=== PATIENT | female | born 1945 | race Caucasian/White ===

== ENCOUNTER 2017-06-21 16:46 | Inpatient (IN) ==
--- NOTE | 2017-06-21 17:03 | Emergency Department Note ---
Arrival - Arrival Chief Complaint: Fall Stated Complaint: FALL ED Nursing Triage Note: fell at home tripped over the cat and landed on her R side has pain to R hip area and unable to bear wgt R leg elevated denies any LOC or other injuries Mode of Arrival: Stretcher Time Seen by Provider: 06/21/17 17:01 - History of Present Illness HPI Narrative: The patient fell at home injuring her right hip. She states she did not feel a pop or hear a pop. She fell first and now is hurting behind her right hip and the pain worsens when she moves her right leg. It is more comfortable when she keeps her leg slightly flexed at the knee. She denies a loss of consciousness, neck pain, nausea, or vomiting. Home Medications: Home Medications Medication Instructions Recorded Confirmed Type Aspirin 81 mg PO QAM 06/21/17 06/21/17 History Insulin NPH Hum/Reg Insulin Hm 10 unit SUBCUT BID 06/21/17 06/21/17 History [NovoLIN 70/30] Exam Physical Examination: General: Patient is well-developed and well-nourished with no acute distress noted. HEENT: The extraocular muscles are intact. Oropharynx is moist. There is no erythema or exudate. The tympanic membranes are shiny bilaterally. Neck: There is no adenopathy. Full range of motion is noted without pain. The trachea is midline. No JVD is present. Lungs: There is normal excursion of the chest with the lungs sounding clear bilaterally. No subcostal retractions are present. There is no point tenderness present. Heart: The heart has a regular rate and rhythm with no gallops or murmurs. Abdomen: The abdomen is nontender and nondistended with no rebound, guarding, or masses. Bowel sounds are normal. Back: The back demonstrates a normal appearance with no evidence of trauma. Genitourinary: Not examined. Extremities: The extremities demonstrate a shortened right leg with equivocal external rotation of the right knee. Pulses are intact. Neuro: Cranial nerves II through XII are checked and intact. There is no focal motor or sensory deficit seen in the extremities. Skin: Skin is warm and dry with no evidence of rash. Vital Signs: Vital Signs Temperature 98.5 F 06/21/17 16:54 Pulse Rate 82 06/21/17 16:54 Respiratory Rate 17 10/14/17 16:54 Blood Pressure 136/89 10/14/17 16:54 O2 Sat by Pulse Oximetry 100 06/21/17 16:54 Course - Reevaluation(s) Reevaluation #1: The patient will be admitted to the hospitalist service with Dr. Akil boucher. He requests the patient be kept n.p.o. after midnight. Time: 18:02 Results - Diagnostic Findings Procedure: Chest x-ray: image reviewed by me (No acute process), X-ray: image reviewed by me (Nondisplaced intertrochanteric fracture) Disposition Clinical Impression: Nondisplaced intertrochanteric right hip Case discussed with: patient, patient's family Disposition: Still a Patient Condition: Stable Time of Disposition: 18:04
--- NOTE | 2017-06-21 18:04 | XRay Report ---
History: Right hip pain after fall Date: 06/21/2017 Study: Right hip 2 views Comparison exam: No previous similar There is a nondisplaced acute intertrochanteric fracture of the hip with near-anatomic alignment. Impression: Acute intertrochanteric fracture right hip PROCEDURE INTERPRETED AT [facility] DEPARTMENT OF RADIOLOGY Final Report Signed by: Dr. Angelica Peterson
--- NOTE | 2017-06-21 18:12 | XRay Report ---
History: Right hip fracture Date: 06/21/2017 Study: Chest x-ray AP portable Comparison exam: No previous The cardiomediastinal silhouette and pulmonary vasculature are unremarkable. The lungs and pleural spaces are clear. The osseous structures are unremarkable. Impression: No acute cardiopulmonary process PROCEDURE INTERPRETED AT [facility] DEPARTMENT OF RADIOLOGY Final Report Signed by: Dr. Angelica Peterson
[2017-06-21 18:41] LABS: Basophils % 0.4 % (0.0-0.8); Eosinophils % 0.2 % (0.00-10.9); Hematocrit 32.9 VOL% (35.7-47.0); Hemoglobin 11.5 GM/DL (12.0-16.0); Immature Granulocytes % 0.4 %; Immature Granulocytes Absolute 0.05 #; Lymphocytes # 1.1 10*3/uL (1.4-4.0); Lymphocytes % 9.6 % (21.3-54.2); Mean Corpuscular Hemoglobin 29 PG (27-34); Mean Corpuscular Volume 81.6 FL (87-102); Mean Platelet Volume 11.3 FL (9.6-12.0); Monocytes % 8.5 % (1.7-12.7); Neutrophils # 9.1 10*3/uL (1.4-7.4); Neutrophils % 80.9 % (38.7-73.9); Platelet Count 253 T/CUMM (130-400); Red Blood Count 4.03 MC/CUMM (3.8-5.5); Red Cell Distribution Width 12.3 % (9.3-17.3); White Blood Count 11.2 T/CUMM (4-12)
--- NOTE | 2017-06-21 18:43 | Orthopedic Consult Note ---
History of Present Illness Chief complaint: Right hip pain status post fall History of present illness: Ms. Sorto is a 71 year old female Ms. Sorto is a 71-year-old white female who fell today sore tripping over a cat at the [place] her right side she had recent right hip pain was unable to ambulate. She normally ambulates without assistive device and is in fairly good health for her stated age of 71 her past medical history she denies heart attack she denies drugs she is insulin-dependent diabetic meds she is on insulin 7030 twice a day and it may be a allergies light past surgeries denies medical surgery Social history does not smoke or drink and she is retired Allergies latex review of systems otherwise negative except with positive stated Physical exam Pleasant white female alert and oriented cooperative her family is present She is alert or cooperative HEENT extremities intact oropharynx is benign neck is nontender throughout the lumbar spine are nontender pelvis is nontender Range of motion right hip is not attended attempted she is tender in the right hip or thigh and calf are soft she has a 2+ dorsalis pedis pulse and she is neurovascularly intact X-rays nondisplaced right intertrochanteric fracture assessment Assessment right intertrochanteric hip fracture Plan open reduction internal fixation right hip with trochanteric nail risks benefits discussed with the patient and her family at length medicine is seen patient admitting patient n.p.o. after midnight for surgery open reduction internal fixation right hip Home Medications Medication Instructions Recorded Confirmed Type Aspirin 81 mg PO QAM 06/21/17 06/21/17 History Insulin NPH Hum/Reg Insulin Hm 10 unit SUBCUT BID 06/21/17 06/21/17 History [NovoLIN 70/30] Allergies Allergy/AdvReac Type Severity Reaction Status Date / Time Unable to Obtain Allergy Unverified 06/21/17 18:37 Exam - Constitutional Vitals: Period Temp Pulse Resp BP Sys/Solomon Pulse Ox Last 24 Hr 98.5 F 82 17 136/89 100
[2017-06-21 18:44] LABS: Apearance,Urine CLEAR (Clear); Bilirubin,Urine Negative (Negative); Blood, Urine Negative (Negative); Glucose,Urine (UA) >=500 mg/dL (Negative); Ketones,Urine Negative (Negative); Nitrite,Urine Negative (Negative); Protein,Urine Negative; Urine Color Straw (Yellow); Urine Specific Gravity 1.021 (1.001-1.035); Urine Urobilinogen < 2.0 EU/DL (0.2-1.0)
--- NOTE | 2017-06-21 18:45 | Hospitalist History & Physical ---
Assessment and Plan (1) Fracture of right hip Status: Acute Assessment and plan: Xray showed an acute intertrochanteric fracture right hip. Orthopedic has seen and wants to take patient to the OR in am. Current Visit: Yes (2) IDDM (insulin dependent diabetes mellitus) Status: Acute Assessment and plan: we will place on a sliding scale for now, hold home meds, since patient will be in and out of meal. Will get HbA1c level. Accucheks UA Lipids CMP EKG IVF Current Visit: Yes History of Present Illness Chief complaint: right hip pain History of present illness: Ms. Sorto is a 71 year old female with a history of insulin dependent diabetes who tripped over her cat at her house and landed on her right side sustaining a hip pain, and couldn't ambulate. EMS brought her to the ER. Upon arrival, Xray showed an acute intertrochanteric fracture right hip, CXR showed no acute cardiopulmonary process. Orthopedic has been consulted and we have been asked to admit while they take the patient to the OR in am. Patient denies hitting her head on the floor. She nears syncope, chest pain or chest tightness.No SOB, fever, nausea, vomiting. She was functioning independently prior to this fall. Home Medications Medication Instructions Recorded Confirmed Type Aspirin 81 mg PO QAM 06/21/17 06/21/17 History Insulin NPH Hum/Reg Insulin Hm 10 unit SUBCUT BID 06/21/17 06/21/17 History [NovoLIN 70/30] Allergies Allergy/AdvReac Type Severity Reaction Status Date / Time Unable to Obtain Allergy Unverified 06/21/17 18:37 Medical,Surgical,& Family Hx - Medical History Endocrine: History of: Diabetes Mellitus (IDDM) 12 point system: reviewed and no additional remarkable complaints except as stated Exam - Constitutional Vitals: Period Temp Pulse Resp BP Sys/Solomon Pulse Ox Last 24 Hr 98.5 F 82 17 136/89 100 General appearance: no acute distress - Head Head exam: Present: normal inspection - Respiratory Respiratory exam: Present: clear to auscultation bilaterally - Cardiovascular Cardiovascular exam: Present: regular rate and rhythm - GI/Abdominal GI/Abdominal exam: Present: normal bowel sounds - Extremities Exam Extremities exam: Present: other (right hip fracture) - Neurological Exam Neurological exam: Present: alert, oriented X3 Results - Labs CBC & BMP: 06/21/17 18:30 Lab Results: I have reviewed the past 24 hour labs
[2017-06-21 18:50] LABS: PT Patient Result 10.5 SECS
[2017-06-21 19:11] LABS: Calcium 8.8 MG/DL (8.5-10.1); Magnesium 1.9 MG/DL (1.8-2.4); Osmolality,Calculated 288.8 MOS/KG (273-304); Potassium 3.9 MMOL/L (3.5-5.1)
[2017-06-21] MEDS ORDERED: INSULIN LISPRO 100 UNIT/ML SUBCUT STA (19:22)
[2017-06-21] MEDS ORDERED: INSULIN LISPRO 100 UNIT/ML SUBCUT ONE (19:27)
[2017-06-21] MEDS ORDERED: MORPHINE 2 MG/1 ML SYRINGE IV PRN (19:45)
[2017-06-21] MEDS ORDERED: GLUCAGON 1 MG VIAL IM PRN (19:45)
[2017-06-21] MEDS ORDERED: DOCUSATE SODIUM 100 MG CAPSULE PO PRN (19:45)
[2017-06-21] MEDS ORDERED: ACETAMINOPHEN 325 MG TABLET PO PRN (19:45)
[2017-06-21] MEDS ORDERED: DEXTROSE 50% 25 GM/50 ML VIAL IV PRN (19:45)
[2017-06-21] MEDS ORDERED: ZALEPLON 5 MG CAPSULE PO PRN (19:45)
[2017-06-21] MEDS ORDERED: ONDANSETRON 4 MG/2 ML VIAL IV PRN (19:45)
[2017-06-21] MEDS: SODIUM CHLORIDE 0.9% 1,000 ML IV SCH (20:14)
[2017-06-21 21:10] LABS: Albumin 3.1 G/DL (3.4-5.0); Bilirubin,Total 0.7 MG/DL (0.2-1.0); Calcium 8.6 MG/DL (8.5-10.1); Osmolality,Calculated 289.4 MOS/KG (273-304); Potassium 3.7 MMOL/L (3.5-5.1); Total Protein 6.3 G/DL (6.4-8.3)
[2017-06-21 21:17] LABS: Magnesium 2.1 MG/DL (1.8-2.4); Risk Ratio 2.82; Thyroid Stimulating Hormone 3.27 uIU/ml (0.358-3.74)
--- NOTE | 2017-06-21 21:54 | Order Completion Report ---
See report scanned to EMR
[2017-06-22 00:22] LABS: Lymphocytes 11 % (20-55); Platelet Estimate Normal; Segmented Neutrophils 82 % (50-85); Total Cells Counted 100
[2017-06-22] MEDS: INSULIN LISPRO 100 UNIT/ML SUBCUT SCH ×4 (00:59→18:25)
[2017-06-22 06:17] LABS: Basophils % 0.3 % (0.0-0.8); Eosinophils # 0.1 10*3/uL (0.0-0.87); Eosinophils % 0.6 % (0.00-10.9); Hematocrit 27.7 VOL% (35.7-47.0); Hemoglobin 9.6 GM/DL (12.0-16.0); Immature Granulocytes % 0.4 %; Immature Granulocytes Absolute 0.03 #; Lymphocytes % 25.6 % (21.3-54.2); Mean Corpuscular HGB Conc 34.7 GM/DL (32-36); Mean Corpuscular Hemoglobin 28 PG (27-34); Mean Platelet Volume 11.5 FL (9.6-12.0); Monocytes # 0.9 10*3/uL (0.11-0.8); Monocytes % 11.7 % (1.7-12.7); Neutrophils # 4.9 10*3/uL (1.4-7.4); Neutrophils % 61.4 % (38.7-73.9); Platelet Count 234 T/CUMM (130-400); Red Blood Count 3.38 MC/CUMM (3.8-5.5); Red Cell Distribution Width 12.6 % (9.3-17.3)
[2017-06-22] MEDS ORDERED: ceFAZolin 1,000 MG VIAL ONE (07:55)
[2017-06-22] MEDS ORDERED: cefTRIAXone 1,000 MG in SODIUM CHLORIDE 0.9% 100 ML IV ONE (08:34)
[2017-06-22] MEDS ORDERED: ceFAZolin 1,000 MG VIAL IM ONE (08:38)
[2017-06-22] MEDS: PANTOPRAZOLE 40 MG TABLET PO SCH (09:14)
--- NOTE | 2017-06-22 09:18 | XRay Report ---
History: Right hip fracture. Patient undergoing ORIF Date: 06/22/2017 Study: AP and lateral views right femur performed in surgery Comparison exam: Right hip x-ray 06/21/2017 Intraoperative films document placement of intramedullary lila across the femoral shaft with sliding compression screw across the femoral neck. There is relatively good alignment and positioning of the right hip fracture following ORIF. 85.3 seconds fluoroscopy time was utilized. 8 spot films were captured and archived. Impression: Films document ORIF PROCEDURE INTERPRETED AT [facility] DEPARTMENT OF RADIOLOGY Final Report Signed by: Dr. Angelica Peterson
--- NOTE | 2017-06-22 09:18 | Operative Note ---
Procedure: Mild preop diagnosis right intertrochanteric fracture Postop diagnosis same Procedure right hip ORIF with trochanteric nail indication new para via radiolucen the patient the patient was done and latex free environment hospital [facility] [id number] [facility] numbers [id number] thank you T drill was then used to place a single locking screw distally new. The wound was irrigated out then closed with 0 2-0 Vicryl and jake on skin sterile dressing was applied tar procedure well without complication Dr. Barnard dictating on Veronica Sorto date of is 1945 Implants used Synthes trochanteric nail 10 x 3 8030 angle lag screw was a 90 Surgeon Akil anesthesia general ii farmworker none estimated blood loss 25 cc complications none indicated Indication Ms. Sorto is a 8-year-old who fell yesterday over a cat sustaining a right intertrochanteric fracture nondisplaced minimally displaced or open reduction internal fixation was recommended risks benefits bleeding infection nerve damage stiffness blood clot further surgery required several discussed she was cleared by medicine for surgery. Human Resource Consultant none Estimated blood loss 25 cc Complications none Surgeon Akil procedure Patient brought to the operating room a general anesthetic cements per anesthesia patient was then moved out of the fracture table [place] table Well-padded perineal post was placed right leg was placed for traction left leg was placed in a well leg kinney The leg was verified position on C-arm AP and lateral views right leg was then prepped and draped after prepping and draping and lateral incision was made proximal to the greater troches as dissection was carried out the iliotibial band appear guidepin was then placed down to the greater cardiotropic and running with intra-reamer of the entry reamer The flexible guidewire was then placed down reamed up to an 11 and half and then placed a nail 10 x 380 mm with 100 third-degree I using the guidewire guidepin was placed up into the head verified position AP and lateral views lag screw was then placed up in the femoral head initially 100 mm this was removed it was too long and a 9 mm lag screw was placed the set screw was then tightened down and backed off one half turn Surgeon / Physician: Yony Barnard Results - Labs CBC & BMP: 06/22/17 05:51 06/21/17 20:04 Discharge Plan - Discharge Medications No Action Insulin NPH Hum/Reg Insulin Hm [NovoLIN 70/30] 10 unit SUBCUT BID Aspirin 81 mg PO QAM - Follow Up or Referral - Forms/Instructions
--- NOTE | 2017-06-22 09:30 | Anesthesia Post-Op ---
Anesthesia Post OP - Post Ansesthetic Evaluation Patient seen in post op: Yes Resp: within normal limits CV: within normal limits Mental: within normal limits (pt remains sedate) Temp: within normal limits [id number]: within normal limits Nausea and Vomiting: within normal limits Pain: within normal limits (pt remain s sedate)
[2017-06-22] MEDS ORDERED: PROPOFOL 200 MG/20 ML VIAL IV ONE (09:31)
[2017-06-22] MEDS ORDERED: fentaNYL 100 MCG/2 ML VIAL ONE (09:32)
[2017-06-22] MEDS ORDERED: LACTATED RINGERS 1,000 ML IV ONE (09:32)
[2017-06-22] MEDS ORDERED: ACETAMINOPHEN 1,000 MG/100 ML VIAL IV ONE (09:32)
[2017-06-22] MEDS ORDERED: ROCURONIUM 100 MG/10 ML VIAL IV ONE ×2 (09:32→15:15)
[2017-06-22] MEDS ORDERED: MIDAZOLAM 2 MG/2 ML VIAL ONE (09:32)
[2017-06-22] MEDS ORDERED: SEVOFLURANE 1 UNIT/15 MINUTE INH ONE (09:32)
[2017-06-22] MEDS ORDERED: SODIUM CHLORIDE 0.9% 100 ML IV ONE (09:32)
[2017-06-22] MEDS: SODIUM CHLORIDE 0.9% 1,000 ML IV SCH (10:42)
--- NOTE | 2017-06-22 11:29 | Orthopedic Progress Note ---
Orthopedics - Subjective Interval history: Postop today Vital signs are stable She is arousable she is alert Thigh and calf are soft 2+ dorsalis pedis pulse Neuro intact Dressing dry Assessment patient is doing well we will to be toe-touch weightbearing starting her on Lovenox 40 mg subcu daily in a.m. I have recommended to the patient and and to her family swing bed referral thank you Postop right hip ORIF with trochanteric nail long Exam - Constitutional Vitals: Period Temp Pulse Resp BP Sys/Solomon Pulse Ox Last 24 Hr 97.3 F-98.6 F 55-82 14-20 94-155/40-91 94-100 Results - Labs CBC & BMP: 06/22/17 05:51 06/21/17 20:04 Quality Measures - VTE Contraindication to Pharmacological VTE Prophylaxis: High Risk of Bleeding
[2017-06-22] MEDS: ceFAZolin 1,000 MG VIAL IM SCH ×2 (12:30→21:33)
--- NOTE | 2017-06-22 14:29 | Hospitalist Progress Note ---
Assessment and Plan (1) Fracture of right hip Status: Acute Assessment and plan: Xray showed an acute intertrochanteric fracture right hip.She had surgery this am. She is going fine. Plan Continue with Orthopedics' recommendations Current Visit: Yes (2) IDDM (insulin dependent diabetes mellitus) Status: Acute Assessment and plan: poorly controlled. [id number] Plan Start Lantus 15units bid DM teaching Continue SSC and accuchecks Current Visit: Yes Hospitalist: Subjective Interval history: 71yr old with IDDM who fell and sustained a right hip fracture. She had surgery this am and currently doing fine. She had no new complaints. Exam - Constitutional Vitals: Period Temp Pulse Resp BP Sys/Solomon Pulse Ox Last 24 Hr 97.3 F-98.6 F 55-82 14-20 94-155/40-91 94-100 General appearance: no acute distress - Head Head exam: Present: normal inspection - Neck Neck exam: Present: normal inspection - Respiratory Respiratory exam: Present: clear to auscultation bilaterally - Cardiovascular Cardiovascular exam: Present: regular rate and rhythm - GI/Abdominal GI/Abdominal exam: Present: normal bowel sounds - Extremities Exam Extremities exam: Present: normal inspection Results - Labs CBC & BMP: 06/22/17 05:51 06/21/17 20:04 Lab Results: I have reviewed the past 24 hour labs Quality Measures - VTE Contraindication to Pharmacological VTE Prophylaxis: High Risk of Bleeding
[2017-06-22] MEDS ORDERED: PROPOFOL 500 MG/50 ML BOTTLE IV ONE (15:15)
[2017-06-22] MEDS ORDERED: ONDANSETRON 4 MG/2 ML VIAL ONE (15:15)
[2017-06-22] MEDS ORDERED: LIDOCAINE 100 MG/5 ML SYRINGE ONE (15:15)
[2017-06-22] MEDS ORDERED: PHENYLEPHRINE 1 MG/10 ML SYRINGE IV ONE (15:15)
[2017-06-22] MEDS: INSULIN GLARGINE 100 UNIT/ML SUBCUT SCH ×2 (16:24→21:32)
[2017-06-22] MEDS: ENOXAPARIN 40 MG/0.4 ML SYRINGE SUBCUT SCH (21:31)
[2017-06-23] MEDS: INSULIN LISPRO 100 UNIT/ML SUBCUT SCH ×4 (00:11→18:18)
[2017-06-23] MEDS: SODIUM CHLORIDE 0.9% 1,000 ML IV SCH ×2 (00:11→13:52)
[2017-06-23 05:17] LABS: Basophils % 0.2 % (0.0-0.8); Hematocrit 23.7 VOL% (35.7-47.0); Hemoglobin 7.9 GM/DL (12.0-16.0); Immature Granulocytes % 0.6 %; Immature Granulocytes Absolute 0.05 #; Lymphocytes # 1.4 10*3/uL (1.4-4.0); Lymphocytes % 17.2 % (21.3-54.2); Mean Corpuscular HGB Conc 33.3 GM/DL (32-36); Mean Corpuscular Hemoglobin 29 PG (27-34); Mean Corpuscular Volume 85.6 FL (87-102); Mean Platelet Volume 11.2 FL (9.6-12.0); Monocytes # 0.9 10*3/uL (0.11-0.8); Monocytes % 10.8 % (1.7-12.7); Neutrophils # 5.8 10*3/uL (1.4-7.4); Neutrophils % 71.2 % (38.7-73.9); Platelet Count 178 T/CUMM (130-400); Red Blood Count 2.77 MC/CUMM (3.8-5.5); Red Cell Distribution Width 12.9 % (9.3-17.3); White Blood Count 8.1 T/CUMM (4-12)
[2017-06-23] MEDS: INSULIN GLARGINE 100 UNIT/ML SUBCUT SCH ×2 (09:33→20:06)
[2017-06-23] MEDS: PANTOPRAZOLE 40 MG TABLET PO SCH (09:34)
--- NOTE | 2017-06-23 11:48 | Hospitalist Progress Note ---
Assessment and Plan (1) Fracture of right hip Status: Acute Assessment and plan: The patient continues on standard postoperative pathway for treatment of hip fracture. Current Visit: Yes (2) Diabetes type 2, controlled Status: Acute Current Visit: Yes Hospitalist: Subjective Interval history: The patient was admitted to hospital and required open reduction internal fixation of the right femur. The patient is recovering nicely and has less pain today. The patient still has discomfort when moving especially bearing weight. The patient has no complaint of angina or palpitation today. Exam - Constitutional Vitals: Period Temp Pulse Resp BP Sys/Solomon Pulse Ox Last 24 Hr 98.0 F-99.3 F 68-81 16-19 104-128/50-78 93-100 Exam: Constitutional System: Mild distress. No tremulousness. Head: Normocephalic, atraumatic. Ears, Nose and Throat System: No evidence of Otitis or Mastoiditis. No epistaxis or discharge Eyes System: Pupils equal, round, and reactive. Extraocular muscles intact. Neck: Supple, without adenopathy, No jugular venous distention. No thyromegaly , neck mass, or prior surgery apparent. Respiratory System: Chest clear to auscultation. Cardiovascular System: Heart with regular rate and rhythm. No murmur. GI System: Abdomen soft, nontender. Normo active bowel sounds present. Musculoskeletal System: Right leg with surgical bandage in place. Neurological System: No discernable sensory deficit. No aphasia Psychiatric System: Conversation is rational Capillary Refill: less than 3 sec Results - Labs CBC & BMP: 06/23/17 04:56 06/21/17 20:04 Lab Results: I have reviewed the past 24 hour labs Quality Measures - VTE Contraindication to Pharmacological VTE Prophylaxis: High Risk of Bleeding
--- NOTE | 2017-06-23 15:25 | Orthopedic Progress Note ---
Orthopedics - Subjective Interval history: Test postop day 1 right intertrochanteric fracture ORIF with troponin nail Patient is without complaints physical therapy is getting ready see her currently Vital signs to Alert and oriented 4 Neurovascularly intact to the right lower extremity Thigh and calf are soft Dressing dry and clean Plan physical therapy toe-touch weightbearing to right lower extremity Discussed and recommended swing bed to patient and family and they are not going to that probable DC in a.m. Exam - Constitutional Vitals: Period Temp Pulse Resp BP Sys/Solomon Pulse Ox Last 24 Hr 98.0 F-99.3 F 69-81 16-18 111-123/50-60 93-98 Results - Labs CBC & BMP: 06/23/17 04:56 06/21/17 20:04 Quality Measures - VTE Contraindication to Pharmacological VTE Prophylaxis: High Risk of Bleeding
[2017-06-23] MEDS: ENOXAPARIN 40 MG/0.4 ML SYRINGE SUBCUT SCH (20:07)
[2017-06-24] MEDS: INSULIN LISPRO 100 UNIT/ML SUBCUT SCH ×4 (00:37→18:57)
[2017-06-24] MEDS: SODIUM CHLORIDE 0.9% 1,000 ML IV SCH ×2 (03:41→03:46)
[2017-06-24 06:42] LABS: Basophils % 0.3 % (0.0-0.8); Eosinophils # 0.1 10*3/uL (0.0-0.87); Eosinophils % 0.7 % (0.00-10.9); Hematocrit 21.6 VOL% (35.7-47.0); Hemoglobin 7.2 GM/DL (12.0-16.0); Immature Granulocytes % 0.7 %; Immature Granulocytes Absolute 0.05 #; Lymphocytes # 1.4 10*3/uL (1.4-4.0); Lymphocytes % 18.7 % (21.3-54.2); Mean Corpuscular HGB Conc 33.3 GM/DL (32-36); Mean Corpuscular Hemoglobin 29 PG (27-34); Mean Corpuscular Volume 85.7 FL (87-102); Mean Platelet Volume 11.6 FL (9.6-12.0); Monocytes % 12.8 % (1.7-12.7); Neutrophils # 5.1 10*3/uL (1.4-7.4); Neutrophils % 66.8 % (38.7-73.9); Platelet Count 169 T/CUMM (130-400); Red Blood Count 2.52 MC/CUMM (3.8-5.5); Red Cell Distribution Width 12.8 % (9.3-17.3); White Blood Count 7.6 T/CUMM (4-12)
[2017-06-24 07:12] LABS: Alanine Aminotransferase < 9 U/L (13-56); Albumin 1.8 G/DL (3.4-5.0); Alkaline Phosphatase 66 U/L (45-117); Aspartate Amino Transferase 16 U/L (0-37); Bilirubin,Total < 0.39 MG/DL (0.2-1.0); Blood Urea Nitrogen 12 MG/DL (7-18); Calcium 7.3 MG/DL (8.5-10.1); Glucose 96 MG/DL (74-106); Magnesium 1.9 MG/DL (1.8-2.4); Osmolality,Calculated 278.4 MOS/KG (273-304); Phosphorous 1.9 MG/DL (2.5-4.9); Sodium 140 MMOL/L (136-145); Total Protein 4.6 G/DL (6.4-8.3)
--- NOTE | 2017-06-24 07:45 | Orthopedic Progress Note ---
Assessment and Plan (1) Fracture of right hip Status: Acute Current Visit: Yes Orthopedics - Subjective Interval history: Postop day 2 Vital signs are stable Alert and oriented 4 Incision clean and dry Thigh and calf are soft neurovascularly intact We will transfuse 1 unit packed red blood cells secondary to drop in hematocrit patient's age and medical comorbidities Exam - Constitutional Vitals: Period Temp Pulse Resp BP Sys/Solomon Pulse Ox Last 24 Hr 98.0 F-100.4 F 51-82 16-20 111-155/53-71 95-99 Results - Labs CBC & BMP: 06/24/17 05:47 06/24/17 05:47 Quality Measures - VTE Contraindication to Pharmacological VTE Prophylaxis: High Risk of Bleeding
[2017-06-24] MEDS ORDERED: SODIUM CHLORIDE 0.9% 250 ML IV PRN (07:48)
[2017-06-24] MEDS: PANTOPRAZOLE 40 MG TABLET PO SCH (10:04)
[2017-06-24] MEDS: INSULIN GLARGINE 100 UNIT/ML SUBCUT SCH ×2 (10:05→21:15)
[2017-06-24] MEDS ORDERED: SODIUM PHOSPHATE INJ 30 MMOL in SODIUM CHLORIDE 0.9% 250 ML IV ONE (11:09)
--- NOTE | 2017-06-24 17:18 | Hospitalist Progress Note ---
Assessment and Plan (1) Diabetes type 2, controlled Status: Acute Assessment and plan: Blood sugars are stable; continue Accu-Cheks with sliding scale coverage as previously ordered. Current Visit: Yes (2) Fracture of right hip Status: Acute Assessment and plan: Postoperative day #2 status post ORIF of the right hip. PT and OT in progress per MD order. Current Visit: Yes Qualifiers: Encounter type: subsequent encounter Hospitalist: Subjective Interval history: Patient seen and examined; chart reviewed. No significant overnight events reported per staff. Postoperative day #2 status post ORIF of right hip. Hemoglobin and hematocrit noted at 7.2 /21.6. We will transfuse 2 units packed red blood cells. Exam - Constitutional Vitals: Period Temp Pulse Resp BP Sys/Solomon Pulse Ox Last 24 Hr 98.7 F-100.4 F 51-76 16-18 111-151/53-71 93-98 General appearance: normal weight, no acute distress - Head Head exam: Present: normal inspection, normocephalic, atraumatic - Eye Eye exam: Present: EOMI. Absent: conjunctival injection Pupils: Present: HANANE, normal accommodation - ENT ENT exam: Present: normal exam, normal external ear exam, normal oropharynx - Neck Neck exam: Present: normal inspection. Absent: lymphadenopathy, meningismus, tenderness, thyromegaly - Respiratory Respiratory exam: Present: clear to auscultation bilaterally. Absent: rales, rhonchi, stridor, wheezes - Cardiovascular Cardiovascular exam: Present: regular rate and rhythm. Absent: carotid bruit, diastolic murmur, gallop, JVD, rubs, systolic murmur - GI/Abdominal GI/Abdominal exam: Present: normal bowel sounds, soft - Extremities Exam Extremities exam: Present: normal inspection, normal capillary refill - Back Exam Back exam: Present: normal inspection - Neurological Exam Neurological exam: Present: alert, oriented X3, CN II-XII intact - Psychiatric Psychiatric exam: Present: normal affect, normal mood - Skin Skin exam: Present: normal color, warm, dry Results - Labs CBC & BMP: 06/24/17 05:47 06/24/17 05:47 Lab Results: I have reviewed the past 24 hour labs Quality Measures - VTE Contraindication to Pharmacological VTE Prophylaxis: High Risk of Bleeding
[2017-06-24] MEDS: ENOXAPARIN 40 MG/0.4 ML SYRINGE SUBCUT SCH (21:16)
[2017-06-25] MEDS: SODIUM CHLORIDE 0.9% 1,000 ML IV SCH ×3 (02:53→05:01)
[2017-06-25] MEDS: INSULIN LISPRO 100 UNIT/ML SUBCUT SCH ×3 (03:00→11:05)
[2017-06-25 07:10] LABS: Basophils % 0.4 % (0.0-0.8); Eosinophils # 0.1 10*3/uL (0.0-0.87); Eosinophils % 0.8 % (0.00-10.9); Hematocrit 26.6 VOL% (35.7-47.0); Immature Granulocytes % 0.6 %; Immature Granulocytes Absolute 0.04 #; Lymphocytes # 1.8 10*3/uL (1.4-4.0); Lymphocytes % 25.6 % (21.3-54.2); Mean Corpuscular HGB Conc 33.8 GM/DL (32-36); Mean Corpuscular Hemoglobin 29 PG (27-34); Mean Corpuscular Volume 84.4 FL (87-102); Mean Platelet Volume 10.9 FL (9.6-12.0); Monocytes # 0.8 10*3/uL (0.11-0.8); Monocytes % 11.2 % (1.7-12.7); Neutrophils # 4.3 10*3/uL (1.4-7.4); Neutrophils % 61.4 % (38.7-73.9); Platelet Count 193 T/CUMM (130-400); Red Blood Count 3.15 MC/CUMM (3.8-5.5); Red Cell Distribution Width 13.2 % (9.3-17.3); White Blood Count 7.1 T/CUMM (4-12)
[2017-06-25 07:45] LABS: Alanine Aminotransferase < 9 U/L (13-56); Albumin 1.9 G/DL (3.4-5.0); Alkaline Phosphatase 78 U/L (45-117); Aspartate Amino Transferase 16 U/L (0-37); Blood Urea Nitrogen 10 MG/DL (7-18); Calcium 7.5 MG/DL (8.5-10.1); Glucose 62 MG/DL (74-106); Magnesium 1.9 MG/DL (1.8-2.4); Osmolality,Calculated 279.1 MOS/KG (273-304); Phosphorous 2.8 MG/DL (2.5-4.9); Potassium 3.3 MMOL/L (3.5-5.1); Sodium 142 MMOL/L (136-145); Total Protein 5.1 G/DL (6.4-8.3)
[2017-06-25] MEDS: INSULIN GLARGINE 100 UNIT/ML SUBCUT SCH (08:31)
[2017-06-25] MEDS: PANTOPRAZOLE 40 MG TABLET PO SCH (08:36)
[2017-06-25 11:02] VITALS: BP 139/66
--- NOTE | 2017-06-25 11:36 | Hospitalist Progress Note ---
Assessment and Plan (1) Diabetes type 2, controlled Status: Acute Assessment and plan: Blood sugars are stable; continue Accu-Cheks with sliding scale coverage as previously ordered. Current Visit: Yes (2) Fracture of right hip Status: Acute Assessment and plan: Postoperative day #2 status post ORIF of the right hip. PT and OT in progress per MD order. Current Visit: Yes Qualifiers: Encounter type: subsequent encounter Hospitalist: Subjective Interval history: Patient seen and examined; chart reviewed. No significant overnight events reported per staff. Patient and family are requesting swing bed placement. We will consult case management to evaluate and discuss options. Exam - Constitutional Vitals: Period Temp Pulse Resp BP Sys/Solomon Pulse Ox Last 24 Hr 98.0 F-99.7 F 60-71 17-20 112-162/52-74 93-100 General appearance: normal weight, no acute distress - Head Head exam: Present: normal inspection, normocephalic, atraumatic - Eye Eye exam: Present: EOMI. Absent: conjunctival injection Pupils: Present: HANANE, normal accommodation - ENT ENT exam: Present: normal exam, normal external ear exam, normal oropharynx - Neck Neck exam: Present: normal inspection. Absent: lymphadenopathy, meningismus, tenderness, thyromegaly - Respiratory Respiratory exam: Present: clear to auscultation bilaterally. Absent: rales, rhonchi, stridor, wheezes - Cardiovascular Cardiovascular exam: Present: regular rate and rhythm. Absent: bradycardia, carotid bruit, diastolic murmur, gallop, JVD, rubs, systolic murmur - GI/Abdominal GI/Abdominal exam: Present: normal bowel sounds, soft - Extremities Exam Extremities exam: Present: normal inspection, normal capillary refill, full ROM. Absent: edema - Back Exam Back exam: Present: normal inspection - Neurological Exam Neurological exam: Present: alert, oriented X3 Results - Labs CBC & BMP: 06/25/17 06:37 06/25/17 06:37 Quality Measures - VTE Contraindication to Pharmacological VTE Prophylaxis: High Risk of Bleeding
--- NOTE | 2017-06-25 11:48 | Discharge Summary ---
Hospital Course - Hospital Course Hospital Course: This is a chronically ill 71-year-old female who presented to the ED at [facility] on the night of June 21, 2017 for the evaluation of right hip pain. Patient has a medical history significant for insulin-dependent diabetes mellitus. The patient reported no significant surgical history at the time of ED presentation. Apparently, the patient was walking over her house and tripped over her cat subsequently landing on her right side. She denied loss of consciousness however she was unable to ambulate. Her daughter came in and discovered her mother on the floor. Her daughter proceeded to [facility] for emergency assistance. The patient was transported to [facility] for further evaluation. The patient was evaluated at the time of ED presentation. X-ray of the right hip was significant for an acute intertrochanteric fracture of the right hip. Chest x-ray was essentially unremarkable. The patient was subsequently admitted to the hospitalist service for continuation of care. Due to the severity of the patient's presenting symptoms, an orthopedic consultation was requested. The patient was evaluated by orthopedics and recommendations were given. On June 22, 2017, the patient underwent open reduction with internal fixation with trochanteric nail indication of the right hip. Physical and Occupational Therapy consultations were requested. The patient's condition gradually improved. The patient's condition is stable. She has not experienced any significant overnight events. Today, we feel that she is indeed appropriate for discharge to [facility] for continuation of care. - Time spent with patient Time with patient DS: Greater than 30 minutes Diagnosis - Discharge Diagnosis (1) Diabetes type 2, controlled Status: Chronic (2) Fracture of right hip Status: Resolved Specialty Discharge - Follow Up or Referrals Follow up with: Yony Barnard MD [Physician] - Discharge Plan - Discharge Data Disposition: Swing Bed, Hos Based, [facility] Condition at Discharge: Stable Discharge Diet: advance to your usual diet Activity: as per physical therapy Hygiene: no restrictions Weight Bearing at Discharge: weight bear as tolerated Driving: no restrictions Contact your physician if you experience:: fever over 101, Difficulty voiding, Redness or swelling, Nausea/Vomiting, Shortness of breath - Discharge Medications Continue Insulin NPH Hum/Reg Insulin Hm [NovoLIN 70/30] 10 unit SUBCUT BID Aspirin 81 mg PO QAM - Follow Up or Referral - Forms/Instructions Exam - Constitutional Vitals: Period Temp Pulse Resp BP Sys/Solomon Pulse Ox Last 24 Hr 98.0 F-99.7 F 60-71 17-20 112-162/52-74 93-100 General appearance: normal weight, no acute distress - Head Head exam: Present: normal inspection, normocephalic, atraumatic - Eye Eye exam: Present: EOMI. Absent: conjunctival injection Pupils: Present: HANANE, normal accommodation - ENT ENT exam: Present: normal exam, normal external ear exam, normal oropharynx - Neck Neck exam: Present: normal inspection. Absent: lymphadenopathy, meningismus, tenderness, thyromegaly - Respiratory Respiratory exam: Present: clear to auscultation bilaterally. Absent: rales, rhonchi, stridor, wheezes - Cardiovascular Cardiovascular exam: Present: regular rate and rhythm. Absent: carotid bruit, diastolic murmur, gallop, JVD, rubs, systolic murmur - GI/Abdominal GI/Abdominal exam: Present: normal bowel sounds, soft - Extremities Exam Extremities exam: Present: normal inspection, normal capillary refill. Absent: edema - Back Exam Back exam: Present: normal inspection - Neurological Exam Neurological exam: Present: alert, oriented X3, CN II-XII intact - Psychiatric Psychiatric exam: Present: normal affect, normal mood - Skin Skin exam: Present: normal color, warm, dry Discharge Results Labs on day of discharge: Labs from last 24 hours 06/25/17 06/25/17 06/25/17 10:44 06:37 06:37 WBC 7.1 RBC 3.15 L D Hgb 9.0 L D Hct 26.6 L MCV 84.4 L MCH 29 MCHC 33.8 RDW 13.2 Plt Count 193 MPV 10.9 Neut % (Auto) 61.4 Lymph % (Auto) 25.6 [place] % (Auto) 11.2 Eos % (Auto) 0.8 Baso % (Auto) 0.4 Neut # (Auto) 4.3 Lymph # (Auto) 1.8 [place] # (Auto) 0.8 Eos # (Auto) 0.1 Baso # (Auto) 0.0 Immature Gran % 0.6 Nucleated RBC % 0.0 Immature Gran # 0.04 Nucleated RBCs # 0.00 Immature Plt Fraction 0.0 Sodium 142 Potassium 3.3 L Chloride 108 H Carbon Dioxide 24 Anion Gap 13.3 BUN 10 Creatinine 0.90 GFR Calculation 60 BUN/Creatinine Ratio 11.00 Glucose 62 L POC Glucose 133 H Calculated Osmolality 279.1 Calcium 7.5 L Phosphorus 2.8 Magnesium 1.9 Total Bilirubin 0.80 AST 16 ALT < 9 L Alkaline Phosphatase 78 Total Protein 5.1 L Albumin 1.9 L Globulin 3.2 Albumin/Globulin Ratio 0.5 L Blood Type Antibody Screen Crossmatch Blood Bank Comment 06/25/17 06/25/17 06/24/17 06:14 00:03 18:01 WBC RBC Hgb Hct MCV MCH MCHC RDW Plt Count MPV Neut % (Auto) Lymph % (Auto) [place] % (Auto) Eos % (Auto) Baso % (Auto) Neut # (Auto) Lymph # (Auto) [place] # (Auto) Eos # (Auto) Baso # (Auto) Immature Gran % Nucleated RBC % Immature Gran # Nucleated RBCs # Immature Plt Fraction Sodium Potassium Chloride Carbon Dioxide Anion Gap BUN Creatinine GFR Calculation BUN/Creatinine Ratio Glucose POC Glucose 70 L 101 202 H Calculated Osmolality Calcium Phosphorus Magnesium Total Bilirubin AST ALT Alkaline Phosphatase Total Protein Albumin Globulin Albumin/Globulin Ratio Blood Type Antibody Screen Crossmatch Blood Bank Comment 06/24/17 07:48 WBC RBC Hgb Hct MCV MCH MCHC RDW Plt Count MPV Neut % (Auto) Lymph % (Auto) [place] % (Auto) Eos % (Auto) Baso % (Auto) Neut # (Auto) Lymph # (Auto) [place] # (Auto) Eos # (Auto) Baso # (Auto) Immature Gran % Nucleated RBC % Immature Gran # Nucleated RBCs # Immature Plt Fraction Sodium Potassium Chloride Carbon Dioxide Anion Gap BUN Creatinine GFR Calculation BUN/Creatinine Ratio Glucose POC Glucose Calculated Osmolality Calcium Phosphorus Magnesium Total Bilirubin AST ALT Alkaline Phosphatase Total Protein Albumin Globulin Albumin/Globulin Ratio Blood Type Cancelled Antibody Screen Cancelled Crossmatch See Detail Blood Bank Comment Cancelled DS: Provider Date of admission: 06/21/17 18:22 Primary care physician: Javan Christine MD Attending physician on admission: Amy Mcleod MD Consults: 06/21/17 18:36 Consult to Physician [CONS] Routine Comment: Consulting Provider: Yony Barnard Date Notified: 06/21/17 Consult Notification Comment: seen in the ER. 06/22/17 14:31 Consult to [facility], Educator [CONS] Routine Reason for Stock Mover: Diabetes Education 06/23/17 13:58 Consult to Occupational Therapy [CONS] Routine Reason for Occupational Therapy: Evaluate and Treat Start Therapy: Today Consult to Physical Therapy [CONS] Routine Reason for Physical Therapy: Evaluate and Treat Ambulation Start Therapy: Today Consult Comment: touch down weight bearing 06/23/17 13:59 Consult to Case Mgmt/Social Srvs [CONS] Routine Reason for Case Mgmt/Social Srvs: Discharge Planning Swingbed/SNF/Longterm Rehab Consult Comment: WALKER AND BSC FOR HOME Discharging clinician: Tona Ponce LYMPHEDEMA THERAPIST
--- NOTE | 2017-06-25 12:47 | Physician Query Form ---
CLICK EDIT DOCUMENT TO SELECT QUERY ANSWER --> OK --> SIGN Lou Desai RN, CCDS Certified Clinical Teradata Developer W) [phone] (f) [phone] [email or web address]: Make your selection(s) from the choices in EACH section by typing an "x" and enter comments in the comment section. Please use your independent medical judgment in providing your response. This request does not imply that any particular answer is desired or expected. CLINICAL INDICATORS: (Providers should not edit this section) The medical record indicates that the patient was admitted for a intertrochanteric fracture, HH noted at 7.2/21.6 and the patient was given two units of blood. Based on the above, could you clarify which of the following conditions you are evaluating, treating, and/or monitoring? ( X) Blood loss anemia (X) acute ( ) chronic ( ) acute on chronic ( ) Acute blood loss anemia on baseline chronic anemia ( ) Acute blood loss anemia as a complication of a procedure ( ) Iron deficiency anemia not associated with blood loss ( ) Dilutional anemia due to IV fluids ( ) Anemia due to chemotherapy ( ) Anemia due to neoplastic disease ( ) Anemia due to chronic kidney disease ( ) Pernicious anemia ( ) Aplastic anemia ( ) Hemolytic anemia ( ) immune ( ) non-immune - please specify cause: ( ) Anemia due to other condition, please specify: ( ) Clinically unable to determine COMMENTS: PLEASE ALSO DOCUMENT RESPONSE IN PROGRESS NOTES AND/OR DISCHARGE SUMMARY Use of terms such as suspected, likely, or probable (associated with a specific diagnosis that is being evaluated, monitored, or treated as if it exists) are acceptable and can be restated in the discharge summary if not ruled out. MTDD
[2017-06-25] MEDS ORDERED: BISACODYL 10 MG SUPP RECTAL ONE (14:05)
== END 2017-06-25 14:53 | DRG 481 ==
LOC: EDBD → EDUNIT# → N.ED 16:46 → SUATTDRO 18:22 → N.EDINP 18:22 → N.3E 19:36
PROVIDERS: ADMIT Internal Medicine; ATTEND Hospitalist

== ENCOUNTER 2021-09-11 17:46 | Inpatient (IN) ==
[2021-09-11] MEDS ORDERED: INSULIN REGULAR 100 UNIT/ML IV STA ×2 (20:19→22:51)
[2021-09-11] MEDS ORDERED: SODIUM CHLORIDE 0.9% 1,000 ML IV STA ×2 (20:19→22:51)
[2021-09-11 20:38] LABS: Basophils % 0.6 % (0.0-0.8); Eosinophils % 0.6 % (0.00-10.9); Hematocrit 38.2 VOL% (35.7-47.0); Hemoglobin 12.5 GM/DL (12.0-16.0); Immature Granulocytes % 0.6 %; Immature Granulocytes Absolute 0.04 #; Lymphocytes # 0.9 10*3/uL (1.4-4.0); Lymphocytes % 12.7 % (21.3-54.2); Mean Corpuscular HGB Conc 32.7 GM/DL (32-36); Mean Platelet Volume 12.7 FL (9.6-12.0); Monocytes % 5.9 % (1.7-12.7); Neutrophils % 79.6 % (38.7-73.9); Platelet Count 309 T/CUMM (130-400); Red Blood Count 4.44 MC/CUMM (3.8-5.5); White Blood Count 7.2 T/CUMM (4-12)
[2021-09-11 20:48] LABS: Albumin 2.7 G/DL (3.4-5.0); Bilirubin,Total 0.5 MG/DL (0.20-1.00); Calcium 8.7 MG/DL (8.5-10.1); Osmolality,Calculated 288.5 MOS/KG (273-304); Potassium 4.5 MMOL/L (3.5-5.1); Thyroid Stimulating Hormone 2.16 uIU/ml (0.358-3.74)
[2021-09-11 21:59] LABS: Bacteria,Urine Occasional /HPF (Few); Bilirubin,Urine Negative (Negative); Blood, Urine Moderate mg/dL (Negative); Glucose,Urine (UA) >=500 mg/dL (Negative); Ketones,Urine 5 mg/dL (Negative); Mucus,Urine Occasional /LPF (Occasional); Nitrite,Urine Negative (Negative); Protein,Urine 100 MG/DL; RBC,Urine 5 /HPF (0-4); Squamous Epithelial Cell,Urine Occasional /HPF (0-10); Urine Appearance Slightly Hazy (Clear); Urine Color Straw (Yellow); Urine Specific Gravity 1.024 (1.001-1.035); Urine Urobilinogen < 2.0 EU/DL (<2.0)
[2021-09-11 22:43] LABS: ABG HCO3 24.2 MMOL/L (20-26); ABG Oxygen Saturation 98.3 % (95-100); ABG PH 7.471 (7.35-7.45); ABG PO2 118.6 MM HG (80-95); ABG TCO2 25.3 MMOL/L (23-27)
[2021-09-11] MEDS ORDERED: ACETAMINOPHEN 325 MG TABLET PO PRN (23:55)
[2021-09-11] MEDS ORDERED: GLUCAGON 1 MG VIAL IM PRN (23:55)
[2021-09-11] MEDS ORDERED: DEXTROSE 50% 25 GM/50 ML SYRINGE IV PRN (23:55)
[2021-09-11] MEDS ORDERED: ONDANSETRON 4 MG/2 ML VIAL IV PRN (23:55)
[2021-09-12] MEDS ORDERED: LACTATED RINGERS 1,000 ML IV SCH
[2021-09-12] MEDS ORDERED: INSULIN GLARGINE 100 UNIT/ML SUBCUT SCH (00:30)
[2021-09-12 01:51] LABS: Calcium 8.2 MG/DL (8.5-10.1); Osmolality,Calculated 278.1 MOS/KG (273-304); Potassium 3.6 MMOL/L (3.5-5.1)
[2021-09-12] MEDS ORDERED: cefTRIAXone 1,000 MG in SODIUM CHLORIDE 0.9% 100 ML IV SCH (02:00)
[2021-09-12] MEDS: SODIUM CHLOR 0.9% KCL 20 MEQ 20 MEQ/1,000 ML BAG IV SCH ×2 (02:22→10:26)
[2021-09-12] MEDS: INSULIN LISPRO 100 UNIT/ML SUBCUT SCH ×5 (04:52→12:19)
[2021-09-12 05:39] LABS: Basophils # 0.1 10*3/uL (0.0-0.2); Basophils % 0.8 % (0.0-0.8); Eosinophils # 0.2 10*3/uL (0.0-0.87); Eosinophils % 2.7 % (0.00-10.9); Hematocrit 30.2 VOL% (35.7-47.0); Immature Granulocytes % 0.5 %; Immature Granulocytes Absolute 0.03 #; Lymphocytes # 1.7 10*3/uL (1.4-4.0); Lymphocytes % 27.1 % (21.3-54.2); Mean Corpuscular HGB Conc 34.1 GM/DL (32-36); Mean Corpuscular Volume 83.4 FL (87-102); Mean Platelet Volume 12.5 FL (9.6-12.0); Monocytes % 12.2 % (1.7-12.7); Neutrophils % 56.7 % (38.7-73.9); Platelet Count 254 T/CUMM (130-400); Red Blood Count 3.62 MC/CUMM (3.8-5.5); Red Cell Distribution Width 12.6 % (9.3-17.3); White Blood Count 6.3 T/CUMM (4-12)
[2021-09-12 05:40] LABS: Hemoglobin 10.3 GM/DL (12.0-16.0)
[2021-09-12 05:54] LABS: Alanine Aminotransferase < 9 U/L (13-56); Albumin 1.8 G/DL (3.4-5.0); Alkaline Phosphatase 123 U/L (45-117); Aspartate Amino Transferase 12 U/L (0-37); Blood Urea Nitrogen 13 MG/DL (7-18); Carbon Dioxide 24 MMOL/L (21-32); Estimated Glom Filtration Rate 24 ML/MIN; Glucose 406 MG/DL (74-106); HDL Cholesterol 31 MG/DL (40-60); Osmolality,Calculated 280.5 MOS/KG (273-304); Potassium 3.7 MMOL/L (3.5-5.1); Risk Ratio 4.65; Sodium 132 MMOL/L (136-145); Triglycerides 263 MG/DL (2-150); VLDL Cholesterol 52.6 MG/DL
[2021-09-12] MEDS ORDERED: PANTOPRAZOLE 40 MG TABLET PO SCH (09:00)
[2021-09-12 12:22] VITALS: BP 130/51
[2021-09-12] MEDS ORDERED: ENOXAPARIN 30 MG/0.3 ML SYRINGE SUBCUT SCH (21:00)
== END 2021-09-12 15:51 | disposition home health service (06) | DRG 638 ==
LOC: N.ED 17:46 → N.EDINP 23:55 → N.5E 09-12 02:17
PROVIDERS: ADMIT Internal Medicine; ATTEND Internal Medicine